=== PATIENT | male | born 1965 | race Caucasian/White ===

== ENCOUNTER 2023-01-25 14:57 | Emergency (ER) | payer OTHER ==
[~2023-01-25] VITALS: Ht 180.3 cm; Wt 98.9 kg
[~2023-01-25 14:57] MED LIST: FURO-151 MT
[2023-01-25 15:16] VITALS: O2SAT 99
[2023-01-25] MEDS ORDERED: HYDROCODONE/ACETAMINOPHEN 5/325MG TABLET PO ONE (17:30)
[2023-01-25] MEDS ORDERED: LIDOCAINE 5% PATCH TOP SCH (17:30)
[2023-01-25] MEDS ORDERED: LIDO700A15 TP (17:32)
[2023-01-25 17:58] VITALS: BP 122/75
[2023-01-25 17:59] VITALS: PULSE 106; RESP 16; TEMP 98.2
== END 2023-01-25 17:59 | disposition home or self-care (01) ==
LOC: ER 15:17
DX: S16.1XXA Strain of muscle, fascia and tendon at neck level, initial encounter (principal); J44.9 Chronic obstructive pulmonary disease, unspecified; I10 Essential (primary) hypertension; X58.XXXA Exposure to other specified factors, initial encounter; Y93.89 Activity, other specified; Y92.89 Other specified places as the place of occurrence of the external cause; Y99.8 Other external cause status
CPT/HCPCS: 99283